=== PATIENT | female | born 1955 | race Caucasian/White ===

== ENCOUNTER 2019-01-31 14:33 | Emergency (ER) | payer MEDICARE, MEDICAID ==
[2019-01-31] MEDS ORDERED: HYDROcodone/Acetaminophen 10/325 mg Tablet ONE (14:55)
[2019-01-31] MEDS ORDERED: Ciprofloxacin 500 MG TAB ONE (14:56)
== END 2019-01-31 15:00 | disposition home or self-care (01) ==
LOC: BURERS 14:33
DX: K02.9 Dental caries, unspecified (principal); K03.81 Cracked tooth; F32.9 Major depressive disorder, single episode, unspecified; F41.9 Anxiety disorder, unspecified; F17.210 Nicotine dependence, cigarettes, uncomplicated; I10 Essential (primary) hypertension; E78.5 Hyperlipidemia, unspecified
CPT/HCPCS: 99282